=== PATIENT | male | born 1975 | race Caucasian/White ===

== ENCOUNTER → 2019-07-31 10:50 | Outpatient (CLI) | payer OTHER, SELFPAY ==
--- NOTE | ~2019-07-31 | MR_ITS ---
EXAMINATION: MR abdomen wo/w con INDICATION: Abnormal findings of the liver, liver mass TECHNIQUE: Coronal SSFSE ARC, WATER:coronal LAVA-FLEX, Coronal 2D FIESTA FatSat, Axial SSFSE BH ARC, Axial 3D DualEcho BH, Axial SSFSE-IR, Axial DWI b=500, Axial 2D FIESTA FatSat, pre and dynamic postco ntrast Axial LAVA ARC, postcontrast Coronal In and Opposed phase LAVA FLEX COMPARISON: None available CONTRAST: Multihance, 18 cc FINDINGS: There is a 1.9 x 1.3 cm T1 hypointense, T2 hyperintense lesion in liver segment VIII which demonstrates interrupted peripheral nodular enhancement on postcontrast images, consistent with a hem angioma. A 1.4 x 0.9 cm lesion of the liver dome with similar MR features is also consistent with a h emangioma. No suspicious liver mass is identified. The spleen, pancreas, gallbladder, and adrenal gla nds are normal. There are no pathologically enlarged abdominal lymph nodes. No dilated loops of bowel are present. There is a moderate volume of colonic stool. IMPRESSION: 1. Two masses in liver segment VIII with MR features of hemangiomas. No suspicious liver mass identif ied. Reviewed, dictated and finalized at location B. IMPRESSION: 1. Two masses in liver segment VIII with MR features of hemangiomas. No suspici ous liver mass identified.
[2019-07-31 11:17] LABS: Estimated Glomerular Filt Rate > 60
== END ==
PROVIDERS: PCP Internal Medicine
DX: R93.2 Abnormal findings on diagnostic imaging of liver and biliary tract (principal)
CPT/HCPCS: 36415; 74183; A9577